=== PATIENT | female | born 1945 | race Caucasian/White ===

== ENCOUNTER → 2016-06-04 | Outpatient (CLI) | payer OTHER | LOC: FIMAGING 10:33 | PROVIDERS: ATTEND Internal Medicine Pulmonary Disease | DX: I26.99 Other pulmonary embolism without acute cor pulmonale (principal) ==

== ENCOUNTER → 2016-07-17 | Outpatient (CLI) | payer OTHER | LOC: BHFA 14:00 | PROVIDERS: ATTEND Internal Medicine Cardiovascular Disease | DX: I26.99 Other pulmonary embolism without acute cor pulmonale (principal) ==

== ENCOUNTER → 2016-11-08 | Outpatient (CLI) | payer OTHER | LOC: BHFA 10:00 | PROVIDERS: ATTEND Internal Medicine | DX: I48.91 Unspecified atrial fibrillation (principal) ==

== ENCOUNTER → 2017-01-21 | Outpatient (CLI) | payer OTHER | LOC: FIMAGING 15:19 | PROVIDERS: ATTEND Internal Medicine | DX: Z12.31 Encounter for screening mammogram for malignant neoplasm of breast (principal) | CPT/HCPCS: G0202 ==

== ENCOUNTER → 2017-11-24 | Outpatient (CLI) | payer OTHER | LOC: BHFA 09:00 | PROVIDERS: ATTEND Internal Medicine Cardiovascular Disease | DX: I48.91 Unspecified atrial fibrillation (principal); I10 Essential (primary) hypertension; E78.5 Hyperlipidemia, unspecified ==

== ENCOUNTER → 2018-02-24 | Outpatient (CLI) | payer OTHER | LOC: FIMAGING 10:48 | PROVIDERS: ATTEND Internal Medicine | DX: Z12.31 Encounter for screening mammogram for malignant neoplasm of breast (principal) ==

== ENCOUNTER → 2018-06-11 | Outpatient (CLI) | payer OTHER | LOC: FIMAGING 15:17 → EDSTATUS 15:19 | PROVIDERS: ATTEND Internal Medicine | DX: R05 Cough (principal); R06.02 Shortness of breath; J84.10 Pulmonary fibrosis, unspecified ==

== ENCOUNTER → 2018-06-22 | Outpatient (CLI) | payer OTHER | LOC: FIMAGING 12:34 | PROVIDERS: ATTEND Internal Medicine | DX: R05 Cough (principal); R06.00 Dyspnea, unspecified; J84.9 Interstitial pulmonary disease, unspecified; R93.421 Abnormal radiologic findings on diagnostic imaging of right kidney ==

== ENCOUNTER → 2018-06-30 | Outpatient (CLI) | payer OTHER ==
[~2018-06-30] MED LIST: IOPAMIDOL (ISOVUE-300) 100 ML BTL ONE
== END ==
LOC: FIMAGING 11:16
PROVIDERS: ATTEND Internal Medicine
DX: R68.89 Other general symptoms and signs (principal); N28.1 Cyst of kidney, acquired; K59.00 Constipation, unspecified; K57.30 Diverticulosis of large intestine without perforation or abscess without bleeding; K82.8 Other specified diseases of gallbladder
CPT/HCPCS: 74178; Q9967; 82565-PO

== ENCOUNTER 2018-07-05 21:11 | Inpatient (IN) | payer OTHER ==
--- NOTE | 2018-07-05 21:20 | EDPHY ---
H & P Time Seen by Provider: 07/05/18 21:18 HPI/ROS: CHIEF COMPLAINT: Shortness of breath, weakness HISTORY OF PRESENT ILLNESS: Patient is a 72-year-old female with a history of respiratory failure and pulmonary embolus on chronic oxygen who presents to the emergency department unable to get up from her chair. Patient states that she felt too weak to stand up. 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 He has a history of dementia per her report. His memory has worsened and he was unavailable to help her get out of the chair or help with her oxygen. Patient's primary complaint is that she was unable to get up from the chair to go to the bathroom so she has stool in her depends. Lisa garcia was concerned that she may have been weak and fatigued because she did not have her oxygen all day. She reports mild shortness of breath. No cough. No fevers or chills. No abdominal pain. REVIEW OF SYSTEMS: 10 systems were reveiwed and are negative with the exception of the elements mentioned in the history of present illness. Past Medical/Surgical History: Includes respiratory failure, pulmonary embolus, heart failure, pneumonia, diabetes Social history: Patient does not smoke. She lives at home with her . Smoking Status: Former smoker (quit in ) Physical Exam: Vitals noted GENERAL: No acute distress, alert. HEENT: Eyes normal to inspection, normal pharynx, no signs of dehydration. NECK: Normal, supple. RESPIRATORY: Clear to auscultation bilaterally, no rales, rhonchi or wheezing. Coarse breath sounds. CVS: Regular rate and rhythm, no rubs, murmurs, or gallops. ABDOMEN: Soft, nontender, nondistended, no organomegaly. BACK: Normal to inspection, no CVA tenderness. SKIN: Normal color, no rash, warm, dry. No pallor. EXTREMITIES: No pedal edema, no calf tenderness, no Homans sign or cords, no joint swelling. NEURO/PSYCH: Alert and oriented, normal mood and affect, normal motor sensory exam. Constitutional: Initial Vital Signs Temperature (C) 36.9 C 07/05/18 21:16 Heart Rate 96 07/05/18 21:16 Respiratory Rate 24 H 07/05/18 21:16 Blood Pressure 129/73 H 07/05/18 21:16 O2 Sat (%) 80 L 07/05/18 21:16 O2 Delivery Mode Oxymask O2 (L/minute) 8 Allergies/Adverse Reactions: lactose [Lactose] Allergy (Severe, Verified 07/05/18 21:16) Abdominal Cramping Home Medications: Medication Instructions Recorded Cholecalciferol Vit D3 [Vitamin D3 2,000 units PO DAILY 04/15/11 2000 units tab (OTC)] Glucosamine/Chondroitin 1 each PO DAILY 04/15/11 [Glucosamine/Chondroitin (*)] Multivitamins [Multivitamin (*)] 1 each PO DAILY 04/15/11 [place]-3 Fatty Acids [Fish Oil 1000 1,000 mg PO DAILY 04/15/11 mg (*)] Herbals/Supplements -Info Only 1 ea PO DAILY 02/06/16 glipiZIDE [Glipizide] 5 mg PO DAILY 02/08/16 Acetaminophen [Tylenol 325mg (*)] 650 mg PO Q4HRS PRN #0 tab 02/12/16 Benzonatate [Tessalon Pearles] 200 mg PO Q6 PRN #0 cap 02/12/16 Lisinopril [Zestril 40 mg (*)] 10 mg PO DAILY #0 tab 02/12/16 Warfarin Sodium [Coumadin 2MG (*)] 2 mg PO DAILY@1600 #0 tab 02/12/16 oxyCODONE IR [Oxycodone Ir (*)] 5 - 10 mg PO Q3HRS PRN #0 tab 02/12/16 Medical Decision Making - Diagnostics Imaging Results: Imaging Impressions Chest X-Ray 07/05/18 21:33 Impression: Features of congestive heart failure, increased from June 11, 2018. ED Course/Re-evaluation: I took sign-out from the coffee brewer. In the emergency department I discussed possible etiologies with the patient. I answered all her questions. Laboratory studies and chest x-ray were obtained. The patient's CBC has an elevated white count of 11. Chemistry panel is pending. Troponin is elevated at 0.18. Patient's chemistry panel is notable for low sodium 128. Glucose is elevated at 402. Anion gap is 10. Patient's BNP is elevated at 4000. INR is elevated at 4.05 EKG: Sinus rhythm at 81. Normal axis. Normal intervals. There are flipped T- waves in III, V1-V4. I compared this with EKG from January 2016. At that time there is flipped T- waves in III, V1-V4. I updated Dr. Gilbert. She will be admitted to the PCU. Differential Diagnosis: My differential includes but is not limited to acute respiratory failure, pneumonia, bronchitis, CHF, ACS, acute MA, electrolyte abnormality, sugar abnormality, dehydration - Data Points Laboratory Results: Laboratory Results 07/05/18 21:30 07/05/18 21:30 07/05/18 07/05/18 07/05/18 21:36 21:30 21:30 WBC RBC Hgb Hct MCV MCH MCHC RDW Plt Count MPV Neut % (Auto) Lymph % (Auto) [place] % (Auto) Eos % (Auto) Baso % (Auto) Nucleat RBC Rel Count Absolute Neuts (auto) Absolute Lymphs (auto) Absolute Monos (auto) Absolute Eos (auto) Absolute Basos (auto) Absolute Nucleated RBC Immature Gran % Immature Gran # PT INR APTT Sodium 128 mEq/L L mEq/L (135-145) Potassium 4.8 mEq/L mEq/L (3.5-5.2) Chloride 98 mEq/L mEq/L (97-110) Carbon Dioxide 20 mEq/l L mEq/l (22-31) Anion Gap 10 mEq/L mEq/L (6-14) BUN 24 mg/dL H mg/dL (7-23) Creatinine 0.9 mg/dL mg/dL (0.6-1.0) Estimated GFR > 60 Glucose 402 mg/dL H mg/dL (70-100) Serum Osmolality Pending Calcium 9.1 mg/dL mg/dL (8.5-10.4) POC Troponin I 0.18 ng/mL H ng/mL (0.00-0.08) NT-Pro-B Natriuret Pep 4080 pg/mL H pg/mL (0-125) Procalcitonin Pending 07/05/18 07/05/18 21:30 21:30 WBC 10.99 10^3/uL H 10^3/uL (3.80-9.50) RBC 4.43 10^6/uL 10^6/uL (4.18-5.33) Hgb 13.3 g/dL g/dL (12.6-16.3) Hct 40.2 % % (38.0-47.0) MCV 90.7 fL fL (81.5-99.8) MCH 30.0 pg pg (27.9-34.1) MCHC 33.1 g/dL g/dL (32.4-36.7) RDW 13.1 % % (11.5-15.2) Plt Count 366 10^3/uL 10^3/uL (150-400) MPV 9.3 fL fL (8.7-11.7) Neut % (Auto) 76.6 % H % (39.3-74.2) Lymph % (Auto) 13.1 % L % (15.0-45.0) [place] % (Auto) 7.9 % % (4.5-13.0) Eos % (Auto) 0.4 % L % (0.6-7.6) Baso % (Auto) 0.5 % % (0.3-1.7) Nucleat RBC Rel Count 0.0 % % (0.0-0.2) Absolute Neuts (auto) 8.41 10^3/uL H 10^3/uL (1.70-6.50) Absolute Lymphs (auto) 1.44 10^3/uL 10^3/uL (1.00-3.00) Absolute Monos (auto) 0.87 10^3/uL H 10^3/uL (0.30-0.80) Absolute Eos (auto) 0.04 10^3/uL 10^3/uL (0.03-0.40) Absolute Basos (auto) 0.06 10^3/uL 10^3/uL (0.02-0.10) Absolute Nucleated RBC 0.00 10^3/uL 10^3/uL (0-0.01) Immature Gran % 1.5 % H % (0.0-1.1) Immature Gran # 0.17 10^3/uL H 10^3/uL (0.00-0.10) PT 37.2 SEC H SEC (12.0-15.0) INR 4.05 H (0.83-1.16) APTT 48.3 SEC H SEC (23.0-38.0) Sodium Potassium Chloride Carbon Dioxide Anion Gap BUN Creatinine Estimated GFR Glucose Serum Osmolality Calcium POC Troponin I NT-Pro-B Natriuret Pep Procalcitonin Medications Given: Discontinued Medications Aspirin (Aspirin) 324 mg PO EDNOW ONE Stop: 07/05/18 22:26 Last Admin: 07/05/18 22:29 Dose: 324 mg Sodium Chloride (Ns) 250 mls @ 1,000 mls/hr IV EDNOW ONE PRN Reason: Protocol Stop: 07/05/18 21:47 Last Admin: 07/05/18 21:43 Dose: 250 mls Point of Care Test Results: Chemistry 07/05/18 21:36 POC Troponin I 0.18 ng/mL H ng/mL (0.00-0.08) Departure - Departure Disposition: [facility] Inpatient Acute Clinical Impression: Hypoxia, Weakness, Hyponatremia, Diabetes, Hyperglycemia, Elevated troponin Condition: Fair
[2018-07-05] MEDS ORDERED: NS 250 ML IV ONE (21:33)
[2018-07-05 21:52] LABS: PLATELET COUNT 366 10^3/uL (150-400)
[2018-07-05 22:05] LABS: INR 4.05 (0.83-1.16); PROTIME(PATIENT) 37.2 SEC (12.0-15.0)
[2018-07-05] MEDS ORDERED: ACETAMINOPHEN 325 MG TAB PO PRN (22:18)
[2018-07-05] MEDS ORDERED: ONDANSETRON 4 MG/2 ML VIAL IVP PRN (22:18)
[2018-07-05] MEDS ORDERED: ONDANSETRON DISINTEGRATING 4 MG TAB PO PRN (22:18)
[2018-07-05] MEDS ORDERED: ASPIRIN 81 MG CHEWABLE TAB PO ONE (22:25)
[2018-07-05] MEDS ORDERED: D50W 25 GM/50 ML SYR IVP PRN (22:29)
--- NOTE | 2018-07-05 22:31 | CPEKG ---
Test Reason : OPEN Blood Pressure : / mmHG Vent. Rate : 081 BPM Atrial Rate : 081 BPM P-R Int : 171 ms QRS Dur : 094 ms QT Int : 419 ms P-R-T Axes : 041 013 -20 degrees QTc Int : 487 ms Sinus rhythm Abnormal T, consider ischemia, diffuse leads Confirmed by Edmund Hillirad ([id number]) on 07/05/2018 10:30:34 PM Referred By: EDMUND HILLIARD Confirmed By:Edmund Hilliard
[2018-07-05] MEDS ORDERED: FUROSEMIDE 20 MG/2 ML VIAL IVP ONE (22:52)
[2018-07-05] MEDS ORDERED: INSULIN LISPRO 100 UNIT/ML SC ONE (22:55)
--- NOTE | 2018-07-05 23:27 | PDGENHP ---
History and Physical - Chief Complaint Weakness - History of Present Illness 72 yo F w/ hx of PE, right-sided heart failure, HTN, ILD, CHRF, and NIDDM presents with weakness, fatigue, and, hypoxia. The patient tells me she has been feeling particularly weak for the last 2 days. She has no energy and is unable to get up from a chair. 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 He is dependent on her for care and neither of them have eaten a meal today. EMS was called today because she could not get up from a chair independently. Upon arrival to the ED she was noted to be significantly hypoxic. She is currently requiring 8 L/min O2 to maintain O2 sats>89%. She wears 3 L/min chronically, but usually only with activity. She denies fever, chills, cough, chest pain, dysuria, and diarrhea. The remainder of her work-up is notable for elevated BNP, troponin, hyponatremia, and CXR suggestive of pulmonary edema. I reviewed her PCP notes from Dr. Barreto who saw the patient in May for progressive dyspnea on exertion. A CT was ordered at that time that demonstrated ILD, likely IPF. She was treated with a prednisone taper but the patient says she thinks this made her feel worse. Her BG has also been poorly controlled lately, her BG is >400 at time of admission today. She is being admitted for management of hypoxia and suspected heart failure exacerbation. Case discussed with ED physician Babak; records reviewed and summarized above. History Information - Allergies/Home Medication List Allergies/Adverse Reactions: lactose [Lactose] Allergy (Severe, Verified 07/05/18 21:16) Abdominal Cramping Home Medications: Cholecalciferol Vit D3 [Vitamin D3 2000 units tab (OTC)] 2,000 units PO DAILY [Last Taken Unknown] Glucosamine/Chondroitin [Glucosamine/Chondroitin (*)] 1 each PO DAILY 04/15/11 [ Last Taken Unknown] Multivitamins [Multivitamin (*)] 1 each PO DAILY 04/15/11 [Last Taken Unknown] [place]-3 Fatty Acids [Fish Oil 1000 mg (*)] 1,000 mg PO DAILY 04/15/11 [Last Taken Unknown] Herbals/Supplements -Info Only 1 ea PO DAILY 02/06/16 [Last Taken Unknown] glipiZIDE [Glipizide] 5 mg PO DAILY 02/08/16 [Last Taken Unknown] I have personally reviewed and updated: family history, medical history - Past Medical History CHF, diabetes type 2, hypertension, pulmonary embolism Additional medical history: obesity - Surgical History Reports: hysterectomy - Family History Positive for: diabetes type II, CAD - Social History Smoking Status: Former smoker (quit in 90s) Additional social history: accompanied by her Review of Systems Review of Systems: ROS: 10pt was reviewed & negative except for what was stated in HPI & below Physical Exam Physical Exam: Temp Pulse Resp BP Pulse Ox 36.9 C 90 22 H 129/73 H 91 L 07/05/18 21:16 07/05/18 21:24 07/05/18 21:24 07/05/18 21:16 07/05/18 21:24 Constitutional: obese, uncomfortable Eyes: PERRL, EOMI Ears, Nose, Mouth, Throat: moist mucous membranes, no oral mucosal ulcers Cardiovascular: regular rate and rhythym, systolic murmur Respiratory: no respiratory distress, inspiratory crackles (Bibasilar), No expiratory wheeze Gastrointestinal: normoactive bowel sounds, soft, non-tender abdomen Skin: warm, normal color Musculoskeletal: no joint effusions, generalized weakness Neurologic: AAOx3, CN II-XII Intact Psychiatric: interacting appropriately, not anxious Lab Data & Imaging Review 07/05/18 21:30 07/05/18 21:30 WBC 10.99 10^3/uL (3.80-9.50) H 07/05/18 21:30 RBC 4.43 10^6/uL (4.18-5.33) 07/05/18 21:30 Hgb 13.3 g/dL (12.6-16.3) 07/05/18 21:30 Hct 40.2 % (38.0-47.0) 07/05/18 21:30 MCV 90.7 fL (81.5-99.8) 07/05/18 21:30 MCH 30.0 pg (27.9-34.1) 07/05/18 21:30 MCHC 33.1 g/dL (32.4-36.7) 07/05/18 21:30 RDW 13.1 % (11.5-15.2) 07/05/18 21:30 Plt Count 366 10^3/uL (150-400) 07/05/18 21:30 MPV 9.3 fL (8.7-11.7) 07/05/18 21:30 Neut % (Auto) 76.6 % (39.3-74.2) H 07/05/18 21:30 Lymph % (Auto) 13.1 % (15.0-45.0) L 07/05/18 21:30 [place] % (Auto) 7.9 % (4.5-13.0) 07/05/18 21:30 Eos % (Auto) 0.4 % (0.6-7.6) L 07/05/18 21:30 Baso % (Auto) 0.5 % (0.3-1.7) 07/05/18 21:30 Nucleat RBC Rel Count 0.0 % (0.0-0.2) 07/05/18 21:30 Absolute Neuts (auto) 8.41 10^3/uL (1.70-6.50) H 07/05/18 21:30 Absolute Lymphs (auto) 1.44 10^3/uL (1.00-3.00) 07/05/18 21:30 Absolute Monos (auto) 0.87 10^3/uL (0.30-0.80) H 07/05/18 21:30 Absolute Eos (auto) 0.04 10^3/uL (0.03-0.40) 07/05/18 21:30 Absolute Basos (auto) 0.06 10^3/uL (0.02-0.10) 07/05/18 21:30 Absolute Nucleated RBC 0.00 10^3/uL (0-0.01) 07/05/18 21:30 Immature Gran % 1.5 % (0.0-1.1) H 07/05/18 21:30 Immature Gran # 0.17 10^3/uL (0.00-0.10) H 07/05/18 21:30 PT 37.2 SEC (12.0-15.0) H 07/05/18 21:30 INR 4.05 (0.83-1.16) H 07/05/18 21:30 APTT 48.3 SEC (23.0-38.0) H 07/05/18 21:30 Sodium 128 mEq/L (135-145) L 07/05/18 21:30 Potassium 4.8 mEq/L (3.5-5.2) 07/05/18 21:30 Chloride 98 mEq/L (97-110) 07/05/18 21:30 Carbon Dioxide 20 mEq/l (22-31) L 07/05/18 21:30 Anion Gap 10 mEq/L (6-14) 07/05/18 21:30 BUN 24 mg/dL (7-23) H 07/05/18 21:30 Creatinine 0.9 mg/dL (0.6-1.0) 07/05/18 21:30 Estimated GFR > 60 07/05/18 21:30 Glucose 402 mg/dL (70-100) H 07/05/18 21:30 Serum Osmolality 297 mosmo/kg (280-297) 07/05/18 21:30 Calcium 9.1 mg/dL (8.5-10.4) 07/05/18 21:30 POC Troponin I 0.18 ng/mL (0.00-0.08) H 07/05/18 21:36 NT-Pro-B Natriuret Pep 4080 pg/mL (0-125) H 07/05/18 21:30 Procalcitonin 0.25 ng/mL (0.02-0.10) H 07/05/18 21:30 Imaging Review: Imaging Impressions Chest X-Ray 07/05/18 21:33 Impression: Features of congestive heart failure, increased from June 11, 2018. Visualized and Interpreted EKG results: Yes EKG Interpretation: Positive for: normal sinsus rhythm, T waves inversion ( Diffuse, unchanged from prior) Assessment & Plan Assessment: 72 yo F w/ hx of PE, right-sided heart failure, HTN, ILD, CHRF, and NIDDM presents with weakness, fatigue, and, hypoxia. Plan: 1. Chronic right sided heart failure with acute exacerbation - I suspect this is playing a significant role in her hypoxia and weakness. She presents with CXR evidence of pulmonary edema as well as elevated BNP. - Furosemide 20 IV now, continue BID - Monitor I/Os, daily weights, cardiac diet - Will repeat TTE noting most recent was in 2016 after acute PE - Cardiology consultation placed 2. Elevated troponin - Troponin 0.18 on admission; she denies chest pain. This is likely demand ischemia from hypoxia and heart failure exacerbation. ECG demonstrates diffuse T wave inversions but these are unchanged from prior comparison. - Trend cardiac enzymes - Monitor on telemetry - Cardiology consultation placed, may require ischemic evaluation 3. Acute on chronic hypoxic respiratory failure - Patient currently requiring 8 L/min O2 to maintain O2 sats>89%. Her baseline is 2-3 L/min with activity. Acute worsening due to heart failure exacerbation, possibly progressive ILD. She denies symptoms of infection currently. - Continue O2 PRN - Acute management of heart failure as above - Consider steroids if not improving, although patient states she was not helped by recent steroid course - Incentive spirometry ordered - Albuterol PRN - Monitor for sign/symptoms of infection 4. Hyponatremia - Possibly hypervolemic from CHF. - Lasix as above - Will check [place], Isha - Monitor BMP 5. Hx PE - PE in 2016 with acute cor pulmonale at that time. She is maintained on warfarin, INR supratherapeutic (4) on admission. - Hold warfarin today - Continue pharmacy to dose - Monitor daily INR 6. NIDDM - Takes glipizide only as an outpatient; BG>400 on admission. - Will manage with sliding scale lispro for now, may need basal dosing as well - D50 IV PRN for hypoglycemia, monitor BG ACHS 7. ILD - Recent CT demonstrated pattern suggestive of IPF. She was treated with a recent course of prednisone, which she states did not help her symptoms. - Consider steroids if not improving Diet - Cardiac Code - Full Ppx - Warfarin Dispo - Admit under observation status
[2018-07-06] MEDS ORDERED: FUROSEMIDE 20 MG/2 ML VIAL IVP ONE (01:15)
[2018-07-06] MEDS ORDERED: INSULIN LISPRO 100 UNIT/ML SC ONE (01:15)
[2018-07-06] MEDS ORDERED: PROTOCOL POTASSIUM 1 DOSE MISC PRN (06:53)
--- NOTE | 2018-07-06 08:58 | PDMN ---
Medical Necessity Medical necessity: MCG M190 Heart Failure, A-2 days: 72 yo w/ sig weakness, unable to get up from chair at home. Eval reveals acute exacerbation CHF w/ pulm edema, elevated BNP, elevated troponin and acute on chronic hypoxic resp fx currently requiring 8L to maintain sats>89%, Na 128. Cardio consult ordered , TTE pending, trend enzymes, cont tele monitoring, IV Lasix, steroids, nebs. Anticipate>2MN for ongoing management of the above. Hx CHF, DM2, HTN, PE, ILD, baseline O2 2-3L, CHRF
[2018-07-06] MEDS: INSULIN LISPRO 100 UNIT/ML SC SCH ×3 (09:01→18:33)
[2018-07-06] MEDS: FUROSEMIDE 20 MG/2 ML VIAL IVP SCH ×2 (09:01→15:24)
[2018-07-06 09:36] LABS: INR 3.58 (0.83-1.16); PROTIME(PATIENT) 33.9 SEC (12.0-15.0)
[2018-07-06 09:38] LABS: PLATELET COUNT 433 10^3/uL (150-400)
--- NOTE | 2018-07-06 10:18 | ECHO ---
[email or web address] [address] [address] Main: [phone] Echocardiography Examination Transthoracic Name: WENDY DEL ROSARIO MR#: [id number] Study Date: 07/06/2018 Study Time: 08:17 AM Date of : 1945 Age: 72 year(s) Height: 165.1 cm (65 in.) Weight: 89.36 kg (197 lb.) BSA: 1.97 m2 Gender: Female Examination: Echo Contrast: Image Quality: Adequate Rhythm: Heart Rate: BP: 135 mmHg/67 mmHg Indication: hypoxia, elevated BNP Procedure Staff Referring Physician: Claims Assistant: Lily Mendenhall [facility] Reading Physician: Cristiano Mc MD Requesting Provider: Indication: hypoxia, elevated BNP Measurements Chambers AV/MV Label Value Normal Value Label Value Normal Value LVOT Vmax 0.82 m/s (0.7m/s - 1.1m/s) AV PGmax 8 mmHg LVOTd 1.9 cm (1.8cm - 2cm) AV PGmean 5 mmHg LVOT PGmax 3 mmHg AV Vmax 1.45 m/s LVDd, 2D 4 cm (3.9cm - 5.3cm) ALFONSO (Vmax) 1.6 cm2 LVDs, 2D 2.7 cm (2.1cm - 4cm) ALFONSO (VTI) 1.8 cm2 IVSd, 2D 1 cm (0.6cm - 1.1cm) MV E Vmax 0.56 m/s LVPWd, 2D 1 cm MV A Vmax 0.82 m/s LVEF, BP 63 % (55% - 70%) MV E/A 0.68 LVEF, 2D 62 % (54% - 74%) MV E/E' lateral 6 LVOT PGmean 2 mmHg MV E/E' septal 8.5 (0.45 - 1.25) LVOT Vmean 0.63 m/s MV DT 236 ms RVDd, 2D 2.8 cm (1.9cm - 3.8cm) MV E' septal 0.07 m/s LA Volume, BP 46 ml (22ml - 52ml) MV PHT 0.07 s LADs, 2D 3.5 cm (2.7cm - 3.8cm) MVA PHT 3 cm2 LAESV index, BP 23.4 ml/m2 MV E' lateral 0.09 m/s RA Area 12.1 cm2 MV E/E' mean 7 Additional Vessels MV PHT 73 ms Label Value Normal Value MV E' mean 0.08 m/s AoAsc 2.6 cm TV/PV AoRoot, 2D 3 cm (1.4cm - 2.6cm) Label Value Normal Value Patient: WENDY DEL ROSARIO Study Date: 07/06/2018 Page 1 of 3 08:17 AM IVC 1.1 cm (1.2cm - 2.3cm) RA Pressure 5 mmHg RVSP 29 mmHg TR Pmax 24 mmHg TR Vmax 2.43 m/s PV PGmax 3 mmHg PV Vmax, Caliper 0.9 m/s (0.6m/s - 0.9m/s) Conclusions Normal left ventricular size and function. LVEF estimated at 60-65% and calculated at 60 3% by Contreras's. Normal left ventricular free wall thickness. Normal diastolic function. No evidence of ischemic wall motion abnormalities. Normal valvular structures. Trivial mitral and mild tricuspid regurgitation. Normal estimated RVSP. No pericardial effusion. No prior studies. Findings Poor image quality transfer due to machine limitations. Left Ventricle: Left ventricle is normal in size. Normal global systolic left ventricular function. The ejection fraction, measured by Simpsons method, is 63 %. EF range is estimated at 60 % - 65 %. Left ventricle wall thickness is normal. There are no regional wall motion abnormalities. Left ventricular diastolic function parameters are normal. No LV hypertrophy. Right Ventricle: Mildly dilated right ventricle. Left Atrium: The left atrium is normal in size. Right Atrium: The right atrium is normal in size. Mitral Valve: Mitral valve appears structurally normal. Trivial mitral regurgitation. No mitral valve stenosis. Aortic Valve: Aortic leaflets are structurally normal. No significant aortic valve regurgitation. There is no aortic stenosis. Tricuspid Valve: Tricuspid valve leaflets are structurally normal. Mild tricuspid regurgitation. No tricuspid valve stenosis. Right Ventricular systolic pressure is measured at 29 mmHg. Pulmonary artery pressure normal. Pulmonic Valve: Pulmonic leaflets are structurally normal. Aorta: The aortic root size in 2D measures 3.0 cm. The ascending aorta measures 2.6 cm. Aorta Measurements AoRoot, 2D is 3.0 cm. IVC: The inferior vena cava is normal in size. Pericardium: No pericardial effusion. Exam Details Procedure Ordered: Echo Procedure Status: Routine study Image Quality: Adequate Facility Location: Cardiac Echo 1 (No Signature Object) Patient: WENDY DEL ROSARIO Study Date: 07/06/2018 Page 2 of 3 08:17 AM Patient: WENDY DEL ROSARIO Study Date: 07/06/2018 Page 3 of 3 08:17 AM [id number]
[2018-07-06] MEDS ORDERED: POTASSIUM CL 10 MEQ TAB PO ONE ×2 (10:32→20:50)
--- NOTE | 2018-07-06 11:28 | PDCARCONS ---
Cardiology Consult Reason for Consult: Hypoxic respiratory failure, possible CHF. Chief Complaint: Weakness, shortness of breath. Requesting Physician: Dr. Sandra Barreto. History of Present Illness: This is a pleasant 72-year-old female seen in consultation on the progressive care unit. As an outpatient, she is followed by Dr. Meño Rios for her cardiology care, Dr. Sandra Barreto for her PCP needs and by Dr. Colton Henson from pulmonology. She has a history of paroxysmal atrial fibrillation. She has not required cardioversion in the past. Additionally, she has a history of a previous pulmonary embolism dating back to January of 2016. As result she is maintained on systemic anticoagulation as an outpatient. Additionally, she has a history of interstitial lung disease. For this she has been wearing supplemental oxygen generally at night and rarely during the day. She was admitted to the hospital here after arriving by ambulance. She states that for the last several days she has been feeling much weaker than she has been in the past. This has been associated with more significant symptoms of exertional dyspnea. With her symptoms of shortness of breath she has not noted orthopnea. In fact, she states that she feels better lying flat. She also notes no lower extremity edema. She denies a cough productive of sputum although tends to have a morning cough producing only clear sputum. She has no history of fever, chills or sweats. As an outpatient she was treated with a prednisone burst by her PCP. This was completed about a week ago. She does not feel that this resulted in a substantial improvement in her symptomatology. On arrival here she was noted to be hypoxic with saturations in the 80% range. She has required up to 8 L OxyMask in order to maintain oxygen saturations above 90%. She denies symptoms of chest pain. She notes no chest pressure or heaviness. She also notes no palpitations. She was in sinus rhythm on arrival here. Since arrival she has been given IV Lasix. This has resulted in a modest net diuresis without significant improvement in her overall symptomatology or objective findings of hypoxemia. History Information - Allergies/Home Medication List Allergies/Adverse Reactions: lactose [Lactose] Allergy (Severe, Verified 07/05/18 21:16) Abdominal Cramping Home Medications: Cholecalciferol Vit D3 [Vitamin D3 2000 units tab (OTC)] 2,000 units PO DAILY [Last Taken Unknown] Glucosamine/Chondroitin [Glucosamine/Chondroitin (*)] 1 each PO DAILY 04/15/11 [ Last Taken Unknown] Multivitamins [Multivitamin (*)] 1 each PO DAILY 04/15/11 [Last Taken Unknown] [place]-3 Fatty Acids [Fish Oil 1000 mg (*)] 1,000 mg PO DAILY 04/15/11 [Last Taken Unknown] Herbals/Supplements -Info Only 1 ea PO DAILY 02/06/16 [Last Taken Unknown] Lisinopril [Zestril 10 mg (*)] 10 mg PO DAILY 07/06/18 [Last Taken 07/04/18] Warfarin Sodium [Coumadin 2MG (*)] 2 mg PO SUTUWETHSA 07/06/18 [Last Taken 07/04] Warfarin Sodium [Coumadin 3MG (*)] 3 mg PO MOFR 07/06/18 [Last Taken 07/03/18] glipiZIDE XL [Glucotrol Xl 2.5 mg (*)] 2.5 mg PO DAILY 07/06/18 [Last Taken 09/16] I have personally reviewed and updated: family history, medical history, social history, surgical history Past Medical History: - Past Medical History Additional medical history: Interstitial lung disease, type 2 diabetes mellitus , hypertension, prior pulmonary embolism in January of 2016, paroxysmal atrial fibrillation, truncal myopathy dating back to 2005, hyperlipidemia. - Surgical History Additional surgical history: Prior hysterectomy. - Family History Positive for: non-pertinent (She is . She is accompanied by her . Apparently, he has fairly advanced dementia. She used to smoke fairly heavily greater than 1 pack of cigarettes daily for at least 30 years and then on and off since 1995. She does live independently. She does not abuse alcohol.) - Social History Smoking Status: Former smoker Physical Exam Physical Exam: Temp Pulse Resp BP Pulse Ox 36.6 C 79 19 135/67 H 92 07/06/18 07:45 07/06/18 07:45 07/06/18 07:45 07/06/18 07:45 07/06/18 07:45 O2 (L/minute) 5 Constitutional: no apparent distress, appears nourished, not in pain Eyes: PERRL, anicteric sclera, EOMI Ears, Nose, Mouth, Throat: moist mucous membranes, hearing normal, ears appear normal, no oral mucosal ulcers Cardiovascular: regular rate and rhythym, no murmur, rub, or gallop, No edema Peripheral Pulses: 2+: carotid (R), carotid (L) Respiratory: no respiratory distress, no rales or rhonchi (has coarse rales noted bilaterally throughout both posterior lung gutiérrez and scattered in the anterior lung gutiérrez) Gastrointestinal: normoactive bowel sounds, soft, non-tender abdomen, no palpable masses Genitourinary: no bladder fullness, no bladder tenderness Skin: warm, normal color, no rashes or abrasions, no fluctuance, no induration, No mottled Musculoskeletal: full muscle strength, no muscle tenderness, normal joint ROM, no joint effusions Psychiatric: interacting appropriately, not anxious, not encephalopathic, thought process linear Lymph, Heme, Immunologic: no cervical LAD, no supraclavicular LAD Lab and Imaging 07/06/18 09:15 07/06/18 09:15 WBC 12.97 10^3/uL (3.80-9.50) H 07/06/18 09:15 RBC 4.76 10^6/uL (4.18-5.33) 07/06/18 09:15 Hgb 14.2 g/dL (12.6-16.3) 07/06/18 09:15 Hct 42.4 % (38.0-47.0) 07/06/18 09:15 MCV 89.1 fL (81.5-99.8) 07/06/18 09:15 MCH 29.8 pg (27.9-34.1) 07/06/18 09:15 MCHC 33.5 g/dL (32.4-36.7) 07/06/18 09:15 RDW 13.2 % (11.5-15.2) 07/06/18 09:15 Plt Count 433 10^3/uL (150-400) H 07/06/18 09:15 MPV 8.8 fL (8.7-11.7) 07/06/18 09:15 Neut % (Auto) 76.3 % (39.3-74.2) H 07/06/18 09:15 Lymph % (Auto) 9.9 % (15.0-45.0) L 07/06/18 09:15 [place] % (Auto) 7.8 % (4.5-13.0) 07/06/18 09:15 Eos % (Auto) 4.1 % (0.6-7.6) 07/06/18 09:15 Baso % (Auto) 0.6 % (0.3-1.7) 07/06/18 09:15 Nucleat RBC Rel Count 0.0 % (0.0-0.2) 07/06/18 09:15 Absolute Neuts (auto) 9.89 10^3/uL (1.70-6.50) H 07/06/18 09:15 Absolute Lymphs (auto) 1.29 10^3/uL (1.00-3.00) 07/06/18 09:15 Absolute Monos (auto) 1.01 10^3/uL (0.30-0.80) H 07/06/18 09:15 Absolute Eos (auto) 0.53 10^3/uL (0.03-0.40) H 07/06/18 09:15 Absolute Basos (auto) 0.08 10^3/uL (0.02-0.10) 07/06/18 09:15 Absolute Nucleated RBC 0.00 10^3/uL (0-0.01) 07/06/18 09:15 Immature Gran % 1.3 % (0.0-1.1) H 07/06/18 09:15 Immature Gran # 0.17 10^3/uL (0.00-0.10) H 07/06/18 09:15 PT 33.9 SEC (12.0-15.0) H 07/06/18 09:15 INR 3.58 (0.83-1.16) H 07/06/18 09:15 APTT 48.3 SEC (23.0-38.0) H 07/05/18 21:30 Sodium 137 mEq/L (135-145) 07/06/18 09:15 Potassium 3.6 mEq/L (3.5-5.2) 07/06/18 09:15 Chloride 99 mEq/L (97-110) 07/06/18 09:15 Carbon Dioxide 26 mEq/l (22-31) 07/06/18 09:15 Anion Gap 12 mEq/L (6-14) 07/06/18 09:15 BUN 23 mg/dL (7-23) 07/06/18 09:15 Creatinine 0.9 mg/dL (0.6-1.0) 07/06/18 09:15 Estimated GFR > 60 07/06/18 09:15 Glucose 231 mg/dL (70-100) H 07/06/18 09:15 POC Glucose 209 mg/dL (70-100) H 07/06/18 08:35 Serum Osmolality 297 mosmo/kg (280-297) 07/05/18 21:30 Calcium 9.3 mg/dL (8.5-10.4) 07/06/18 09:15 Magnesium 1.5 mg/dL (1.6-2.3) L 07/06/18 09:15 POC Troponin I 0.18 ng/mL (0.00-0.08) H 07/05/18 21:36 Troponin I 0.072 ng/mL (0.000-0.034) H 07/06/18 09:15 NT-Pro-B Natriuret Pep 4080 pg/mL (0-125) H 07/05/18 21:30 Procalcitonin 0.25 ng/mL (0.02-0.10) H 07/05/18 21:30 Urine Color YELLOW 07/06/18 01:42 Urine Appearance MODERATELY TURBID 07/06/18 01:42 Urine pH 5.0 (5.0-7.5) 07/06/18 01:42 Ur Specific [place] 1.015 (1.002-1.030) 07/06/18 01:42 Urine Protein 1+ (NEGATIVE) H 07/06/18 01:42 Urine Ketones NEGATIVE (NEGATIVE) 07/06/18 01:42 Urine Blood NEGATIVE (NEGATIVE) 07/06/18 01:42 Urine Nitrate NEGATIVE (NEGATIVE) 07/06/18 01:42 Urine Bilirubin NEGATIVE (NEGATIVE) 07/06/18 01:42 Urine Urobilinogen NEGATIVE EU (0.2-1.0) 07/06/18 01:42 Ur Leukocyte Esterase TRACE (NEGATIVE) H 07/06/18 01:42 Urine RBC 3-5 /hpf (0-3) H 07/06/18 01:42 Urine WBC 10-15 /hpf (0-3) H 07/06/18 01:42 Ur Epithelial Cells TRACE /lpf (NONE-1+) 07/06/18 01:42 Urine Bacteria TRACE /hpf (NONE SEEN) H 07/06/18 01:42 Hyaline Casts 1-5 /lpf (0-1) 07/06/18 01:42 Urine Mucus TRACE /lpf (NONE-1+) 07/06/18 01:42 Urine Osmolality 488 mosmo/kg (300-900) 07/06/18 01:42 Ur Random Sodium 33 mEq/L (30-90) 07/06/18 01:42 Urine Glucose 3+ (NEGATIVE) H 07/06/18 01:42 Laboratory Tests 07/05/18 07/05/18 07/06/18 21:30 21:36 09:15 INR 4.05 H 3.58 H POC Troponin I 0.18 H Troponin I 07/06/18 09:15 INR POC Troponin I Troponin I 0.072 H Visualized and Interpreted Chest x-ray results: Yes Chest X-ray Interpretation: other (Chronic changes of increased interstitial markings) Visualized and Interpreted EKG results: Yes EKG additional interpertation: Normal sinus rhythm. Inferior and anterior T- wave inversions which are chronic and stable. Telemetry: Sinus rhythm. Echocardiogram: There is a full and separately detailed report on the chart. A/P Assessment: 1. Acute on chronic hypoxic respiratory failure. 2. History of interstitial lung disease. 3. History of paroxysmal atrial fibrillation currently in sinus rhythm. 4. History of previous pulmonary embolism currently on systemic anticoagulation. 5. History of hypertension. 6. History of an abnormal ECG with anterior T-wave inversions. 7. Mild troponin elevation. She presents with a syndrome of acute on chronic hypoxic respiratory failure. Cardiology was consulted regarding concerns about congestive heart failure. Overall, her current syndrome appears to be more of a pulmonary process-likely an exacerbation of her underlying ILD. She has no evidence of jugular venous distention, lower extremity edema and she is manifesting symptoms that are more consistent with platypnea rather than orthopnea. Furthermore her echocardiogram does not demonstrate features of systolic or diastolic dysfunction or substantial valvular abnormalities that might precipitate congestive heart failure and there is no indication that she has had a recent arrhythmia. Ischemia certainly is on the differential diagnosis, however. Her slight troponin elevation is likely a result of supply demand mismatch in the setting of hypoxemia however, may signify underlying coronary artery disease. Plan: 1. I would recommend consulting with pulmonology. 2. I do think it is reasonable to continue with IV diuretics as currently prescribed. 3. Systemic anticoagulation should be continued. 4. As an outpatient, depending on her clinical course, we certainly can proceed with stress myocardial perfusion imaging for evaluation of possible CAD. 5. We will follow along with you.
--- NOTE | 2018-07-06 12:38 | HOSPPROG ---
Hospitalist Progress Note Assessment/Plan: 72-year-old admitted last night with increasing shortness of breath and weakness. 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 She does have a history of interstitial lung disease and probable COPD as well as previous pulmonary embolism. She does not have a documented history of heart disease. # acute chronic hypoxic respiratory failure unclear etiology. Possibly progressive interstitial lung disease verses other etiology. I did discuss this with Dr. Mc to feels like an acute cardiac congestive heart failure is likely not a major issue contributing to her dyspnea. She has also been compliant with her Coumadin and has not been non therapeutic so PE seems less likely as well. * Echo reviewed with Cardiology * Continue diuresis for now although her weight has gone down since the clinic * Pulmonology consult # interstitial lung disease # elevated troponin, likely secondary to hypoxia. No anginal symptoms currently. Discussed with Dr. Mc plan will be to do outpatient risk stratification once she is at her baseline out of the hospital. Certainly if she has increased anginal symptoms while in the hospital could do an inpatient nuclear stress test. # pulmonary embolism on chronic Coumadin therapy # diabetes type 2 elevated blood sugars while on prednisone. # hypertension # atrial fibrillation Subjective: Hospital course reviewed 1st time seeing patient in the hospital. Discussed with Cardiology and pulmonology continues to feel quite this make with minimal activity. And weak. Objective: Vital Signs Temp Pulse Resp BP Pulse Ox 36.6 C 85 22 H 153/71 H 91 L 07/06/18 12:00 07/06/18 12:00 07/06/18 12:00 07/06/18 12:00 07/06/18 12:00 Microbiology 07/05/18 23:55 Respiratory Panel (PCR) - Final Nasal, Sinus - Swab No Organism Detected By Pcr Laboratory Results 07/06/18 09:15 07/06/18 09:15 07/05/18 07/06/18 07/07/18 05:59 05:59 05:59 Intake Total 250 Output Total 1100 100 Balance -850 -100 PT 33.9 SEC (12.0-15.0) H 07/06/18 09:15 INR 3.58 (0.83-1.16) H 07/06/18 09:15 - Physical Exam Constitutional: chronically ill appearing, uncomfortable Eyes: PERRL Ears, Nose, Mouth, Throat: moist mucous membranes Cardiovascular: regular rate and rhythym, No edema Respiratory: reduced air movement, inspiratory crackles, respiratory distress Gastrointestinal: soft, non-tender abdomen Genitourinary: no bladder fullness Skin: warm Neurologic: AAOx3 Psychiatric: interacting appropriately ICD10 Worksheet Patient Problems: Problems Problem Status Onset Diabetes Acute Elevated troponin Acute Hyperglycemia Acute Hyponatremia Acute Hypoxia Acute Weakness Acute Pneumonia Acute Pulmonary emboli Acute
[2018-07-06] MEDS ORDERED: WARFARIN SODIUM 3 MG TAB PO SCH (14:45)
[2018-07-06] MEDS: LISINOPRIL 10 MG TAB PO SCH (15:23)
--- NOTE | 2018-07-06 15:25 | ASMTCMCOM ---
CM Note CM Note Notes: Pts case discussed w/ Merle, charge nurse. Pt is a 72 y/o female admitted for hypoxia and weakness. 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 CM spoke to pts son Ton on the phone (P#: [phone]) Ton is flying into [facility] at 6PM and will be in [place] around 7PM. Ton reports that pt has had 24/7 caregivers recently and have been utilizing caregivers 7hrs/day. Ton has arranged for the caregiver to stop by pts home to take care of their dog, Juliette. Ton reports that they have discussed going to an AL and possibly having pts going to a memory care facility. It does not appear that family is ready for memory care. CM emailed a list of private duty caregivers to Ton. YELENA asked Dr. Barreto to order PT/OT. CM to follow. Plan: TBD Date Signed: 07/06/2018 02:16 PM Electronically Signed By:LAURIE Jones
[2018-07-06] MEDS: ALBUTEROL 3 ML DEYVIAL IH PRN (15:58)
--- NOTE | 2018-07-06 16:28 | GCON ---
[f rep st] CONSULTATION PULMONARY CONSULTATION DATE OF CONSULTATION: 07/06/2018 HISTORY OF PRESENT ILLNESS: This patient is a 72-year-old female with a history of interstitial lung disease, possibly idiopathic pulmonary fibrosis, who was admitted on 07/05/2018, with hypoxemia. Juju zelaya is normally followed by Colton Henson for her ILD and was last seen by him in January 2018. She ne eded oxygen at that time, but was really only using it at night and it is not clear whether she was u sing it with ambulation at that time. When she was at rest, she did not require it. In any case, juju zelaya had complained of exertional dyspnea, which had apparently been a chronic problem since a pulmonary embolism in 2015. She was otherwise fairly stable according to his notes and she confirmed that thi s was the case. However, since that time she has continued to slowly deteriorate from a pulmonary pe rspective, the exertional dyspnea has been difficult to understand, as it has been a chronic problem with expectant ups and downs. On 06/11/18, she saw her primary care doctor and complained of shortne ss of breath and cough with an increase in oxygen requirement. She was given Lasix at that time with out much change and a CT scan dated 06/18, showed signs of interstitial lung disease and she was roberto jamin with prednisone at that time. However, she developed substantial weakness and difficultly to con trol her blood sugars in a background setting of diabetes. Subsequently, she called EMS. She was fo und to be quite hypoxic at the time and apparently was without oxygen for big part of the day. Beulah brennan has a home caregiver who assists in her management of her , who struggles with significan t dementia. In any case when she got to the emergency department, she required 8 L/minute to maintai n her oxygen saturation. A chest x-ray was suggestive of a heart failure and a BNP was 4000. Procal citonin was 0.25 and a troponin of 0.18. She had been tapering her prednisone at that time. Because of concerns of pulmonary edema, she was then given Lasix, which has had minimal effect. There was a cardiology consult, who thought that her troponin was driven by her hypoxia and that her heart was a ctually functioning fairly well. An echocardiogram the next day also showed well-functioning heart. In any case, she remains on Lasix now and said that she feels that she is getting better. Her oxyge n saturation was 91% at rest on 5 L/minute nasal cannula, but apparently if she does anything as simp le as walking across the room, she will desaturate. She, herself, said that she thought that most of the trouble really started when she started the prednisone, but this is slowly getting better and th at she is able to at least get herself up from a chair. She denies fevers, chills, or sweats. She has had no chest pain and no recent episodes of syncope. There has been no hemoptysis and no clear aspiration events. REVIEW OF SYSTEMS: Otherwise negative. PAST MEDICAL HISTORY: Includes: 1. ILD as described. 2. Pulmonary embolism. 3. Hyperlipidemia. 4. Hypertension. 5. Diabetes. 6. Atrial fibrillation. 7. Arthritis. PAST SURGICAL HISTORY: Includes ankle and hip surgery in the past and a hysterectomy. She may have had stem cell injections in the past. SOCIAL HISTORY: She has a 60 pack-year smoking history, but quit in 1997. No significant alcohol. FAMILY HISTORY: Noncontributory at this time. USUAL MEDICATIONS: Include: Tylenol, albuterol, Lasix 20 mg IV twice daily, Glucotrol, lispro, Zestr il, multivitamins, Zofran warfarin. PHYSICAL EXAM: GENERAL: Pleasant woman, sitting up in a chair, in no apparent distress and able to speak in full sentences without using accessory muscles for breathing. VITAL SIGNS: She was afebril e. Her oxygen saturation was 91% on 5 L nasal cannula. Heart rate of 85, respirations 20. HEENT: Pupils equally round and reactive to light. Nonicteric and noninjected. Mucous membranes are moist without erythema or exudate. NECK: Supple without adenopathy or jugular vein distention. LUNGS: B reath sounds revealed bilateral inspiratory rales without wheezing. HEART: Irregular, but no obviou s murmurs that I could tell. ABDOMEN: Obese, but soft, nontender, nondistended. EXTREMITIES: No clu bbing, cyanosis, or edema. NEUROLOGIC: Nonfocal, including cranial nerves, deep tendon reflexes. S KIN: Warm and dry, without evidence of rash. OBJECTIVE DATA: Includes: 1. Her chest x-ray on 07/05 revealing prominent pulmonary vasculature and interstitial edema compare d to her previous study June 11, 2018 without pleural effusions. 2. Her white count was 10.9 on arrival, 12.9 today, hematocrit 42, platelets 433. INR has been 3 to 4. Basic metabolic panel has been normal. Glucose has been running in the high 200s. Magnesium lo w at 1.5. Troponin was 0.072. BNP was 4080. Procalcitonin was 0.25. ASSESSMENT/PLAN: Hypoxemia. I suspect this is been going on longer than just the acute episode. Wh en I quizzed her about her oxygen measurements practices, she was quite vague about activity but did check it frequently when she was at rest. It was not clear to me whether she was actually using oxyg en while ambulatory. She does have an [employer] portable oxygen concentrator which only goes up to a se tting of 3, but she seemed quite surprised when I told her oxygen saturation really had to be above 9 0 at all times and thought that she has occasional periods where her oxygen saturation is at 85 and p otentially even less. What I do not see is evidence of an infection. Her viral panel is negative. Her white count was unremarkable for somebody on prednisone. Her procalcitonin is the upper limit of normal. I also do not really think this is all congestive heart failure alone, though she is gettin g Lasix and seems to be turning a corner, but clinically has little to support congestive heart failu re. The cardiology consult and the echo are supportive of that idea. The troponin was too small and I do not think it has anything to do with it, other than that is more as a result of hypoxia as oppo sed to a cause. She is fully anticoagulated, so pulmonary embolism seems highly unlikely. I do not think she has chronic obstructive pulmonary disease, though she does not have a lot of pulmonary func tion test data available. In August of 2017 her FEV1 was 1.72 or 73% of predicted and in January 2018 it was 1.79. Vital capacity showed similar comparisons between those 2. The possibility of an IPF exacerbation certainly exists, not that she necessarily needed it before now but she has not been on pirfenidone or nintedanib and it is possible that that is what is driving this. Mostly support, rodo sahu sure there are not other problems or other standard approaches to therapy most people will give st eroids. However, given the difficulty she had with empiric prednisone with severe hyperglycemia and presumed myopathy, I would be very hesitant to give her a systemic steroids at this time. She agreed with that plan. I think in the short term that we could titrate her oxygen down to her lowest possi ble settings, maintaining a saturation greater than 90% both at rest and with activity. She will petty ntually need repeat pulmonary function testing moving forward. /[id number]/MODL
[2018-07-07 03:52] LABS: PLATELET COUNT 391 10^3/uL (150-400)
[2018-07-07 04:07] LABS: INR 3.4 (0.83-1.16); PROTIME(PATIENT) 32.6 SEC (12.0-15.0)
[2018-07-07] MEDS ORDERED: POTASSIUM CL 10 MEQ TAB PO ONE (08:01)
[2018-07-07] MEDS: LISINOPRIL 10 MG TAB PO SCH (09:25)
[2018-07-07] MEDS: MULTIVITAMINS 1 EACH TAB PO SCH (09:26)
[2018-07-07] MEDS: INSULIN LISPRO 100 UNIT/ML SC SCH ×3 (09:27→18:18)
[2018-07-07] MEDS: FUROSEMIDE 20 MG/2 ML VIAL IVP SCH (09:31)
[2018-07-07] MEDS: ALBUTEROL 3 ML DEYVIAL IH PRN (10:31)
--- NOTE | 2018-07-07 11:04 | SOAPPROG ---
SOAP Progress Note Assessment/Plan: Assessment: 1. Acute on chronic hypoxic respiratory failure. I believe that this is likely related to her underlying interstitial lung disease. She has no indications, at the present time, of significant congestive heart failure driving her hypoxemia. This is confirmed by her echocardiographic findings and her low N terminal proBNP. 2. Abnormal ECG. She has anterior T-wave inversions. These are chronic changes. 3. Mild troponin elevation. Likely related to her presentation with hypoxemia. 4. History of hypertension. 5. History of prior pulmonary embolism. 6. History of PAF currently in sinus rhythm. Plan: 1. Continue with twice daily dosing of IV Lasix. 2. Continue systemic anticoagulation with goal INR between 2 and 3. 3. Will defer to pulmonology regarding management of her underlying lung disease. 4. We will sign off for the time being. Please re-consult with questions. 07/07/18 11:02 Subjective: Essentially no clinical change overnight. She continues to require 7 L of nasal cannula oxygen to maintain saturations of 90%. Despite this, today, she is not complaining of dyspnea. She denies anginal quality chest discomfort. She has remained in sinus rhythm. Pulmonology was consulted yesterday. Objective: Vital Signs Temp Pulse Resp BP Pulse Ox 36.9 C 88 20 116/61 95 07/07/18 08:00 07/07/18 10:33 07/07/18 10:33 07/07/18 08:00 07/07/18 10:33 Microbiology 07/05/18 23:55 Respiratory Panel (PCR) - Final Nasal, Sinus - Swab No Organism Detected By Pcr Laboratory Results 07/07/18 03:40 07/07/18 03:40 07/06/18 07/07/18 07/08/18 05:59 05:59 05:59 Intake Total 250 2350 100 Output Total 1100 350 Balance -850 2000 100 PT 32.6 SEC (12.0-15.0) H 07/07/18 03:40 INR 3.40 (0.83-1.16) H 07/07/18 03:40 Physical Exam - Physical Exam General Appearance: WD/WN, alert, no apparent distress, other (Wearing nasal cannula oxygen) EENT: PERRL/EOMI, normal ENT inspection, pharynx normal, TMs normal Neck: non-tender, full range of motion, supple, normal inspection Respiratory: chest non-tender, other (Diffuse Velcro rales appreciated posteriorly in both the lower and upper lung gutiérrez, similar lung findings appreciated in the left anterior lung field) Cardiac/Chest: normal peripheral pulses, regular rate, rhythm Peripheral Pulses: 2+: carotid (R), carotid (L), femoral (R), femoral (L), dorsalis-pedis (R), dorsalis-pedis (L) Abdomen: normal bowel sounds, non-tender, soft Pelvic Exam: deferred Rectal: deferred Back: Normal inspection Skin: normal color, warm/dry Lymphatic: no adenopathy Extremities: normal range of motion, non-tender, normal inspection, normal capillary refill Neuro/Psych: no motor/sensory deficits, alert, normal mood/affect, oriented x 3 ICD10 Worksheet Patient Problems: Problems Problem Status Onset Pulmonary emboli Acute Pneumonia Acute Hypoxia Acute Weakness Acute Hyponatremia Acute Diabetes Acute Hyperglycemia Acute Elevated troponin Acute
--- NOTE | 2018-07-07 11:28 | HOSPPROG ---
Hospitalist Progress Note Assessment/Plan: 72-year-old admitted with increasing shortness of breath and weakness. 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 She does have a history of interstitial lung disease and probable COPD as well as previous pulmonary embolism. She does not have a documented history of heart disease. # acute chronic hypoxic respiratory failure unclear etiology. Possibly progressive interstitial lung disease verses other etiology. I did discuss this with Dr. Mc to feels like an acute cardiac congestive heart failure is likely not a major issue contributing to her dyspnea. She has also been compliant with her Coumadin and has therapeutic so PE seems less likely as well. Continues to have increased oxygen needs. * Echo reviewed with Cardiology * Continue diuresis for now, but will change to daily PO lasix, since BUN increased * Pulmonology consult reviewed # interstitial lung disease # Weakness, possible myopathy from the prednisone which has been discontinued. Unclear if weakness or related to hypoxia and dyspnea. # elevated troponin, likely secondary to hypoxia. No anginal symptoms currently. Discussed with Dr. Mc plan will be to do outpatient risk stratification once she is at her baseline out of the hospital. Certainly if she has increased anginal symptoms while in the hospital could do an inpatient nuclear stress test. # pulmonary embolism on chronic Coumadin therapy # diabetes type 2 elevated blood sugars while on prednisone. # hypertension # atrial fibrillation Subjective: Denies significant shortness of breath although she is on increased oxygen flow overnight to 10 L. She desaturate is quickly down to the 70s off oxygen and has fairly significant dyspnea on exertion Objective: Vital Signs Temp Pulse Resp BP Pulse Ox 36.9 C 88 20 116/61 95 07/07/18 08:00 07/07/18 10:33 07/07/18 10:33 07/07/18 08:00 07/07/18 10:33 Microbiology 07/05/18 23:55 Respiratory Panel (PCR) - Final Nasal, Sinus - Swab No Organism Detected By Pcr Laboratory Results 07/07/18 03:40 07/07/18 03:40 07/06/18 07/07/18 07/08/18 05:59 05:59 05:59 Intake Total 250 2350 100 Output Total 1100 350 Balance -850 2000 100 PT 32.6 SEC (12.0-15.0) H 07/07/18 03:40 INR 3.40 (0.83-1.16) H 07/07/18 03:40 - Physical Exam Constitutional: uncomfortable Eyes: PERRL Ears, Nose, Mouth, Throat: moist mucous membranes Cardiovascular: regular rate and rhythym Respiratory: inspiratory crackles (Right greater than left), respiratory distress Gastrointestinal: normoactive bowel sounds Genitourinary: no bladder fullness Skin: normal color Musculoskeletal: generalized weakness Neurologic: AAOx3 Psychiatric: interacting appropriately ICD10 Worksheet Patient Problems: Problems Problem Status Onset Pulmonary emboli Acute Pneumonia Acute Hypoxia Acute Weakness Acute Hyponatremia Acute Diabetes Acute Hyperglycemia Acute Elevated troponin Acute
--- NOTE | 2018-07-07 13:31 | PDINTPN ---
[employer] Senior Sergeant Progress Note Assessment/Plan: 72 F with non-specific ILD and chronic hypoxemia and chronic exertional dyspnea admitted 07/05/18 with profound weakness. She reported increasing oxygen requirements and SOB so was given a trial of prednisone but developed significant weakness and came to the ED when she could no longer get up from a chair. A recent chest CT showed relatively stable but significant ILD, and her oxygen compliance was difficult to ascertain. She was initially diuresed based on a BNP, but her echo was unremarkable and it had little effect on her O2 requirements. Cardiology agreed. * Hypoxemia- she appears to have an increase in her O2 requirement, but empiric steroids for acute exacerbation of ILD resulted in severe weakness and hyperglycemia- both of which have improved after holding prednisone. Continue to support with O2 to keep sat >90, which will necessarily be higher with ambulation and periods when she removes it (eg cough or nose blowing). I would favor stopping lasix since her BUN and HCO3 are climbing. She may be a candidate for perfenidone, though that has no role in acute disease. Her COPD diagnosis is uncertain since her spirometry showed preserved FEV1/FVC ratio. Subjective: feels better and was able to ambulate some today. O2 requirements remain tenuous Objective: Vital Signs Temp Pulse Resp BP Pulse Ox 36.5 C 88 18 113/65 88 L 07/07/18 11:34 07/07/18 11:34 07/07/18 11:34 07/07/18 11:34 07/07/18 11:34 Microbiology 07/05/18 23:55 Respiratory Panel (PCR) - Final Nasal, Sinus - Swab No Organism Detected By Pcr Laboratory Results 07/07/18 03:40 07/07/18 03:40 07/06/18 07/07/18 07/08/18 05:59 05:59 05:59 Intake Total 250 2350 100 Output Total 1100 350 Balance -850 2000 100 PT 32.6 SEC (12.0-15.0) H 07/07/18 03:40 INR 3.40 (0.83-1.16) H 07/07/18 03:40 Physical Exam - Physical Exam General Appearance: alert, no apparent distress, obese EENT: PERRL/EOMI Neck: supple Respiratory: decreased breath sounds, crackles (bilateral bases), No respiratory distress, No accessory muscle use Cardiac/Chest: regular rate, rhythm, No edema Abdomen: non-tender, soft, No distended Skin: normal color, warm/dry, No cyanosis Lymphatic: no adenopathy Extremities: No pedal edema Neuro/Psych: alert, normal mood/affect, oriented x 3 ICD10 Worksheet Patient Problems: Problems Problem Status Onset Diabetes Acute Elevated troponin Acute Hyperglycemia Acute Hyponatremia Acute Hypoxia Acute Weakness Acute Pneumonia Acute Pulmonary emboli Acute
[2018-07-07] MEDS ORDERED: WARFARIN SODIUM 2 MG TAB PO SCH (14:39)
--- NOTE | 2018-07-07 16:15 | ASMTCMCOM ---
CM Note CM Note Notes: Pts case discussed w/ Dr. Barreto. Pt will probably be here for a couple more days. PT is recommending HC. CM met w/ pt, pts and pts son Ton for dispo planning. Pt has had [facility] in the past and would like to use them again. Pt is requesting for a RN with the last name to be her nurse again. Pt said this nurse was great. Referral sent to [facility] and they are able to accept. CM confirmed pts address and phone number. CM to follow. Plan: [facility]; PT, RN Date Signed: 07/07/2018 04:15 PM Electronically Signed By:LAURIE Jones
[2018-07-08 04:40] LABS: INR 2.63 (0.83-1.16); PROTIME(PATIENT) 26.8 SEC (12.0-15.0)
[2018-07-08] MEDS ORDERED: LACTULOSE 20 GM/30 ML UDCUP PO PRN (08:47)
[2018-07-08] MEDS ORDERED: POLYETHYLENE GLYCOL 3350 17 GM PKT PO PRN (08:47)
[2018-07-08] MEDS ORDERED: BISACODYL 10 MG SUPP PR PRN (08:47)
[2018-07-08] MEDS ORDERED: MAGNESIUM HYDROXIDE 30 ML UDCUP PO PRN (08:47)
[2018-07-08] MEDS: INSULIN LISPRO 100 UNIT/ML SC SCH ×3 (09:05→17:51)
[2018-07-08] MEDS: MULTIVITAMINS 1 EACH TAB PO SCH (09:06)
[2018-07-08] MEDS: SENNOSIDES/DOCUSATE SODIUM TAB PO SCH ×2 (09:06→20:40)
[2018-07-08] MEDS: LISINOPRIL 10 MG TAB PO SCH (09:07)
[2018-07-08] MEDS: FUROSEMIDE 20 MG TAB PO SCH (09:08)
--- NOTE | 2018-07-08 13:56 | PDINTPN ---
Sanitarian Aide Progress Note Assessment/Plan: 72 F with non-specific ILD and chronic hypoxemia and chronic exertional dyspnea admitted 07/05/18 with profound weakness. She reported increasing oxygen requirements and SOB so was given a trial of prednisone but developed significant weakness and came to the ED when she could no longer get up from a chair. A recent chest CT showed relatively stable but significant ILD, and her oxygen compliance was difficult to ascertain. She was initially diuresed based on a BNP, but her echo was unremarkable and it had little effect on her O2 requirements. Cardiology agreed. * Hypoxemia- she appears to have an increase in her O2 requirement, but empiric steroids for acute exacerbation of ILD resulted in severe weakness and hyperglycemia- both of which have improved after holding prednisone. Continue to support with O2 to keep sat >90, which will necessarily be higher with ambulation and periods when she removes it (eg cough or nose blowing). I would favor stopping lasix since her BUN and HCO3 are climbing. She may be a candidate for perfenidone, though that has no role in acute disease. Her COPD diagnosis is uncertain since her spirometry showed preserved FEV1/FVC ratio. At rest, her sat is 91-92 on 5 lpm NC which she prefers. She can switch to a high flow NC for ambulatory purposes to allow for higher flow as she may be ready for dc soon 07/08/18 13:47 Subjective: remains stable with ongoing O2 requirement Objective: Vital Signs Temp Pulse Resp BP Pulse Ox 36.7 C 86 19 106/70 91 L 07/08/18 11:25 07/08/18 11:25 07/08/18 11:25 07/08/18 11:25 07/08/18 11:25 Laboratory Results 07/07/18 03:40 07/08/18 04:12 07/07/18 07/08/18 07/09/18 05:59 05:59 05:59 Intake Total 2350 1700 Output Total 350 100 Balance 2000 1700 -100 PT 26.8 SEC (12.0-15.0) H 07/08/18 04:12 INR 2.63 (0.83-1.16) H 07/08/18 04:12 Physical Exam - Physical Exam General Appearance: alert, no apparent distress, obese EENT: PERRL/EOMI Neck: supple Respiratory: crackles (bilateral bases), No respiratory distress, No accessory muscle use, No wheezing Cardiac/Chest: regular rate, rhythm, No edema Abdomen: non-tender, soft, No distended Skin: normal color, warm/dry, No cyanosis Lymphatic: no adenopathy Extremities: No pedal edema Neuro/Psych: alert, normal mood/affect, oriented x 3 ICD10 Worksheet Patient Problems: Problems Problem Status Onset Diabetes Acute Elevated troponin Acute Hyperglycemia Acute Hyponatremia Acute Hypoxia Acute Weakness Acute Pneumonia Acute Pulmonary emboli Acute
[2018-07-08] MEDS ORDERED: WARFARIN SODIUM 2 MG TAB PO ONE (16:00)
--- NOTE | 2018-07-08 17:41 | HOSPPROG ---
Hospitalist Progress Note Assessment/Plan: DIAGNOSES: * Acute hypoxemic respiratory failure * Known Interstitial lung disease * Generalized weakness, deconditioning, gait instability, possible worsening due to her steroid treatment which has been stopped * Known pulmonary embolism history on Coumadin * Elevated cardiac troponin due to stress of acute respiratory failure, do not suspect an acute coronary syndrome * Excessive anticoagulation on Coumadin at home * History of atrial fibrillation, paroxysmal, currently in sinus * Diabetes type 2, elevated sugars on prednisone * Benign essential hypertension She is making very slow progress with her breathing here so far, still quite debilitated and requiring high-flow oxygen by OxyMask. She was hoping to get home in the next day or 2 but really not moving very well on her feet yet due to dyspnea PLANS: * Continue current respiratory treatments * Continue low-dose Lasix * Increase activity as able * Continue her glipizide and follow sugars, if they remain elevated may need to add some long-acting insulin or other therapy * She will need home therapies upon discharge Seen by me on hospitalist rounds as well as multidisciplinary rounds today SUBJECTIVE: Remains fairly short of breath Slept poorly Still with cough, no chest discomfort or fever symptoms OBJECTIVE Vitals reviewed: All stable without fever at this time Electrical Engineering Manager, my review: Continues in sinus Exam: alert oriented skin warm dry color ok resps not labored lungs clear BSs heart regular abd soft nondistended nontender, bowel sounds present limbs warm, no edema iv site ok Lab data: Sugars remain high but improved, range so far today 150-250 Microbiology: Respiratory pathogen panel negative Objective: Vital Signs Temp Pulse Resp BP Pulse Ox 37.0 C 87 20 133/84 H 88 L 07/08/18 15:43 07/08/18 15:43 07/08/18 15:43 07/08/18 15:43 07/08/18 15:43 Laboratory Results 07/07/18 03:40 07/08/18 04:12 07/07/18 07/08/18 07/09/18 06:59 06:59 06:59 Intake Total 2450 1600 Output Total 350 100 Balance 2100 1600 -100 PT 26.8 SEC (12.0-15.0) H 07/08/18 04:12 INR 2.63 (0.83-1.16) H 07/08/18 04:12 - Time Spent With Patient Time Spent with Patient: greater than 35 minutes Time Spent with Patient: Greater than 35 minutes spent on this patients care, greater than 50% of time spent counseling, educating, and coordinating care regarding the above mentioned plan. ICD10 Worksheet Patient Problems: Problems Problem Status Onset Diabetes Acute Elevated troponin Acute Hyperglycemia Acute Hyponatremia Acute Hypoxia Acute Weakness Acute Pneumonia Acute Pulmonary emboli Acute
[2018-07-09 04:49] LABS: INR 2.11 (0.83-1.16); PROTIME(PATIENT) 22.6 SEC (12.0-15.0)
[2018-07-09] MEDS: LISINOPRIL 10 MG TAB PO SCH (08:21)
[2018-07-09] MEDS: MULTIVITAMINS 1 EACH TAB PO SCH (08:21)
[2018-07-09] MEDS: FUROSEMIDE 20 MG TAB PO SCH (08:21)
[2018-07-09] MEDS: INSULIN LISPRO 100 UNIT/ML SC SCH ×2 (08:23→12:29)
[2018-07-09] MEDS: SENNOSIDES/DOCUSATE SODIUM TAB PO SCH (09:38)
[2018-07-09 11:32] VITALS: BP 97/53
--- NOTE | 2018-07-09 13:46 | PDDCSUM ---
Discharge Summary Discharge Summary: DISCHARGE DIAGNOSES: * Acute hypoxemic respiratory failure * Known chronic interstitial lung disease with progression * Generalized weakness gait instability deconditioning * Known pulmonary embolism history on Coumadin * Indeterminate elevation of cardiac troponins here, do not suspect acute coronary syndrome under likely due to her respiratory issues * Chronic paroxysmal atrial fibrillation in sinus rhythm here * Diabetes type 2 with elevated sugars here on prednisone * Benign essential hypertension CONSULTANTS: Dr. Jensen Mc PROCEDURES: Echocardiogram showing normal ejection fraction 60 65%, no other abnormalities of left ventricular confirmation function or valves. No effusion HOSPITAL COURSE SUMMARY: This patient with known interstitial lung disease and hypoxic respiratory failure on 2 L of oxygen at home came in with worsening respiratory symptoms and worsening hypoxemia. She had recently been seen in the outpatient setting and started on some prednisone but this did not result in any improvement in her symptoms and it was discontinued here. She did have some evidence of right- sided congestive heart failure with peripheral edema here at this time and was treated with some diuresis but this did not result in a dramatic improvement in her symptoms. He did result in significant increase in her BUN and this was despite persisting peripheral edema. This was also discontinued. Over time she was able to wean down on oxygen somewhat and was up walking about in the hallway though not as well as she typically does at home. She did appear to be safe on her feet however. Early on in hospital stay which she was on as much as 11 L oxygen by OxyMask but at the time discharge is able to walk in the hallway without difficulty on 5 L nasal cannula She does have oxygen concentrator is a at home. She has 24 hr home care arranged at this time as well as visiting physical therapy. She will be discharged to home with that assistance and plans to follow up with primary care and pulmonology clinics. PENDING TEST RESULTS: None MEDICATION CHANGES: None FOLLOW-UP PLAN: With Dr. Sandra Barreto in 1-[address] Colton Henson in 2-4 weeks Greater than 35 minutes bedside and care coordination time today
--- NOTE | 2018-07-09 14:45 | ASMTLACE ---
LACE Length of stay for Answers: 3 days current admission Acuity / Level of Answers: Yes Care: Did the patient have an inpatient admission? Comorbidities - select Answers: Congestive heart failure all that apply Diabetes (uncontrolled or controlled) Other Notes: HTN; Pulmonary embolism # of Emergency department Answers: 1-2 visits in the last 6 months Score: 11 Date Signed: 07/09/2018 02:45 PM Electronically Signed By:Jimena Huff RN
--- NOTE | 2018-07-09 14:48 | ASMTDCNOTE ---
Case Management Discharge Discharge Order Complete? Answers: Yes Patient to Obtain Answers: via Family Medications Transportation Arranged Answers: Family/Friends Faxed Final Orders Answers: Yes Notes: [facility] Agency/Facility Transfer Answers: Yes Notes: [facility] Report Printed & Faxed to Receiving Agency Family Notified Answers: Yes Notes: Valdo Camilo Discharge Comments Notes: 07/09/2018 Case Management Note Faxed final orders to [facility]. Discussed on the phone requesting ERIC Flores on pt behalf. Per pt, planning on setting up 24 hour care with [facility]. Left VM for valdo Camilo confirming arrangement. Per pt son to transport home. Case Management d/c poc: [facility] with increased supports from [facility]. Date Signed: 07/09/2018 02:48 PM Electronically Signed By:Jimena Huff RN
--- NOTE | 2018-07-09 14:49 | ASDISCHSUM ---
Discharge Information Plan Status:Home with Home Health Medically Cleared to Leave:07/09/2018 Discharge Date:07/09/2018 CM D/C Disposition:Home Health Service ADT D/C Disposition:[id number] Projected Discharge Date:07/10/2018 11:00 AM Transportation at D/C:Family Discharge Delay Reason: Follow-Up Date:07/10/2018 11:00 AM Discharge Slot: Final Diagnosis: Placement Information Referral Type:*Home Health Care Services Referral ID:[id number] Provider Name:[facility] Address 1:[address] Address 2: City:[place] Selection Factors: State:[place] Patient Contact Information Contact Name:SAEED Relationship: Address:[address] [place] [address] Work Phone: City:[place] Alternate Phone: State/Zip Code:[place] [address] Email: Financial Information Financial Class:Medicare Primary Plan Desc:MEDICARE INPATIENT Primary Plan Number:[id number] Secondary Plan Desc:[facility] Secondary Plan Number:[id number] Assessment Information LACE LACE Length of stay for Answers: 3 days current admission Acuity / Level of Answers: Yes Care: Did the patient have an inpatient admission? Comorbidities - select Answers: Congestive heart failure all that apply Diabetes (uncontrolled or controlled) Other Notes: HTN; Pulmonary embolism # of Emergency department Answers: 1-2 visits in the last 6 months Score: 11 Date Signed: 07/09/2018 02:45 PM Electronically Signed By:Jimena Huff RN [facility] CM Progress Note CM Note CM Note Notes: Pts case discussed w/ Merel charge nurse. Pt is a 72 y/o female admitted for hypoxia and weakness. 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 CM spoke to pts son Ton on the phone (P#: [phone]) Ton is flying into [facility] at 6PM and will be in [place] around 7PM. Ton reports that pt has had 24/7 caregivers recently and have been utilizing caregivers 7hrs/day. Ton has arranged for the caregiver to stop by pts home to take care of their dog, Juliette. Ton reports that they have discussed going to an AL and possibly having pts going to a memory care facility. It does not appear that family is ready for memory care. CM emailed a list of private duty caregivers to Ton. CM asked Dr. Barreto to order PT/OT. CM to follow. Plan: TBD Date Signed: 07/06/2018 02:16 PM Electronically Signed By:LAURIE Jones [facility] Progress Note CM Note CM Note Notes: Pts case discussed w/ Dr. Barreto. Pt will probably be here for a couple more days. PT is recommending HC. CM met w/ pt, pts and pts son Ton for dispo planning. Pt has had [facility] in the past and would like to use them again. Pt is requesting for a RN with the last name to be her nurse again. Pt said this nurse was great. Referral sent to [facility] and they are able to accept. CM confirmed pts address and phone number. CM to follow. Plan: [facility]; PT, RN Date Signed: 07/07/2018 04:15 PM Electronically Signed By:LAURIE Jones Case Management Discharge Plan Note Case Management Discharge Discharge Order Complete? Answers: Yes Patient to Obtain Answers: via Family Medications Transportation Arranged Answers: Family/Friends Faxed Final Orders Answers: Yes Notes: [facility] Agency/Facility Transfer Answers: Yes Notes: [facility] Report Printed & Faxed to Receiving Agency Family Notified Answers: Yes Notes: Valdo Camilo Discharge Comments Notes: 07/09/2018 Case Management Note Faxed final orders to [facility]. Discussed on the phone requesting ERIC Flores on pt behalf. Per pt, planning on setting up 24 hour care with [facility]. Left VM for valdo Camilo confirming arrangement. Per pt son to transport home. Case Management d/c poc: [facility] with increased supports from [facility]. Date Signed: 07/09/2018 02:48 PM Electronically Signed By:Jimena Huff RN Intervention Information Intervention Type:*IM-Signed Date of Service:07/09/2018 02:31 PM Patient Type:Inpatient Staff Member:Clara Carter Hours: Discipline: Severity: Comment:
--- NOTE | 2018-07-09 15:47 | PDIAF ---
- Diagnosis Diagnosis: interstitial lung disease, hypox resp failure, deconditioning Code Status: Full Code (se,) - Medication Management Discharge Medications: electronically signed and located in the Home Medication List. PICC Care - Routine: N/A - Orders Services needed: Home Care, Registered Nurse, Physical Therapy Home Care Face to Face: I certify that this patient was under my care and that I had the required [id number] encounter meeting the encounter requirements on the discharge day. My findings support the fact that the patient is homebound as defined in Home Care Face to Face Continued: CMS Chapter 7 Medicare Benefits Manual 30.1.1 , The condition of the patient is such that there exists a normal inability to leave home and consequently, leaving home would require a considerable and taxing effort. Isolation Type: None Oxygen: 5L NC Diet Recommendation: no restrictions on diet Diet Texture: Regular Texture Diet Equipment: oxygen concentrator Additional Instructions: Follow up with Dr. Sandra Barreto in clinic in 1-2 weeks Follow up with Dr. Colton Henson in 2-4 weeks - Follow Up Care Current Providers and Referrals: Patient,NotPresent [Unknown] - As per Instructions
[2018-07-09] MEDS ORDERED: WARFARIN SODIUM 3 MG TAB PO ONE (16:00)
== END 2018-07-09 17:54 | disposition home health service (06) | DRG 189 ==
LOC: EDUNIT# → F2W 07-06 00:55
PROVIDERS: ADMIT Student in an Organized Health Care Education/Training Program; ATTEND Internal Medicine
DX: J96.21 Acute and chronic respiratory failure with hypoxia (principal); J84.9 Interstitial pulmonary disease, unspecified; R26.81 Unsteadiness on feet; R53.1 Weakness; I50.811 Acute right heart failure; E11.65 Type 2 diabetes mellitus with hyperglycemia; I11.0 Hypertensive heart disease with heart failure; I48.0 Paroxysmal atrial fibrillation; E87.1 Hypo-osmolality and hyponatremia; Z99.81 Dependence on supplemental oxygen; Z86.711 Personal history of pulmonary embolism; Z79.84 Long term (current) use of oral hypoglycemic drugs; Z79.01 Long term (current) use of anticoagulants
CPT/HCPCS: 84484-ER; 97116-GP; 97161-GP; 97165-GO; 97530-GO; 97530-GP; 97535-GO; J1815; J1940; J7613